=== PATIENT | female | born 1990 | race African-American/Black ===

== ENCOUNTER 2018-03-03 17:17 | Emergency (ER) | payer MEDICAID ==
[~2018-03-03] VITALS: Ht 162.6 cm; Wt 88.0 kg
[~2018-03-03 17:17] MED LIST: IBUP-1223 PO; OXYC-302 PO; PREN1TAB60 PO
[2018-03-03 17:47] VITALS: BP 121/86
== END 2018-03-03 18:27 | disposition home or self-care (01) ==
LOC: ED 18:19
DX: L73.2 Hidradenitis suppurativa (principal)
CPT/HCPCS: 99283

== ENCOUNTER 2018-06-04 19:26 | Emergency (ER) | payer MEDICAID ==
[~2018-06-04] VITALS: Ht 162.6 cm; Wt 84.9 kg
[2018-06-04 19:32] VITALS: BP 120/80
[2018-06-04] MEDS ORDERED: LIDOCAINE 1%-EPI 1:100K, 20ML ONE (19:38)
[2018-06-04] MEDS ORDERED: LIDOCAINE 1%-EPI 1:100K, 20ML SQ ONE (20:00)
[2018-06-04] MEDS ORDERED: BACITRACIN ZINC OINT 500U/GM, 0.9 GM ONE (20:27)
== END 2018-06-04 20:33 | disposition home or self-care (01) ==
LOC: ED 20:00
DX: L03.011 Cellulitis of right finger (principal); L03.115 Cellulitis of right lower limb; W22.8XXA Striking against or struck by other objects, initial encounter; Y93.89 Activity, other specified; Y99.8 Other external cause status; Y92.009 Unspecified place in unspecified non-institutional (private) residence as the place of occurrence of the external cause
CPT/HCPCS: 99283